=== PATIENT | female | born 1980 | race Caucasian/White ===

== ENCOUNTER 2017-02-02 20:06 | Emergency (ER) | payer OTHER ==
[2017-02-02 23:25] VITALS: BP 128/84
== END 2017-02-02 23:25 | disposition home or self-care (01) ==
LOC: ED 20:06
DX: J20.9 Acute bronchitis, unspecified (principal); J45.909 Unspecified asthma, uncomplicated

== ENCOUNTER 2017-12-11 22:13 | Inpatient (IN) | payer OTHER ==
[~2017-12-11] VITALS: Ht 162.6 cm; Wt 63.5 kg
[2017-12-11 22:59] LABS: BASOPHIL % 1.6 % (0-2); PLATELET COUNT 317 x10^3mcL (130-400); RED CELL DISTRIBUTION WIDTH 13.9 % (11.5-14.5)
[2017-12-11 23:09] LABS: CALCIUM 8.4 mg/dL (8.5-10.1); CARBON DIOXIDE 23.1 mmol/L (21-32); CHLORIDE SERUM 102 mmol/L (98-107); CREATININE SERUM 0.8 mg/dL (0.6-1.0); GFR1 > 60 mL/min; GLUCOSE SERUM 109 mg/dL (74-106); POTASSIUM SERUM 3.4 mmol/L (3.5-5.1); SODIUM SERUM 135 mmol/L (136-145)
[2017-12-11 23:14] LABS: ALBUMIN 3.7 g/dL (3.4-5.0); ALKALINE PHOSPHATASE 51 U/L (46-116); ALT/SGPT 17 U/L (14-59); AMYLASE 75 U/L (25-115); AST/SGOT 11 U/L (15-37); BILIRUBIN TOTAL 0.3 mg/dL (0.20-1.00); LIPASE 164 IU/L (73-393)
[2017-12-12 02:40] VITALS: BP 116/69
[2017-12-12 03:35] LABS: T3 TOTAL 1.06 ng/mL
[2017-12-12 04:01] LABS: MAGNESIUM 1.8 mg/dL (1.8-2.4); PHOSPHOROUS 2.6 mg/dL (2.5-4.9)
[2017-12-12 04:02] LABS: FREE T4 1.18 ng/dL (0.76-1.46); FREE THYROXINE INDEX 2.9 ug/dL (1.4-4.5); T4(THYROXINE) 8.4 ug/dL (4.7-13.3)
[2017-12-12 04:18] LABS: CHOLESTEROL/HDL RATIO 2.1
[2017-12-12 06:29] LABS: BASOPHIL % 1.6 % (0-2); PLATELET COUNT 289 x10^3mcL (130-400); RED CELL DISTRIBUTION WIDTH 13.6 % (11.5-14.5)
[2017-12-12 06:30] VITALS: BP 127/79
[2017-12-12 06:42] LABS: CALCIUM 8.2 mg/dL (8.5-10.1); CARBON DIOXIDE 23.1 mmol/L (21-32); CHLORIDE SERUM 106 mmol/L (98-107); CREATININE SERUM 0.7 mg/dL (0.6-1.0); GFR1 > 60 mL/min; GLUCOSE SERUM 92 mg/dL (74-106); POTASSIUM SERUM 3.8 mmol/L (3.5-5.1); SODIUM SERUM 138 mmol/L (136-145)
[2017-12-12 07:47] LABS: microscopic required? NO
[2017-12-12 08:19] LABS: urine erythrocyte NEGATIVE (NEGATIVE)
[2017-12-12 08:27] LABS: AMPHETAMINE QUAL UR NONE DETECTED (NEG <=1000)
[2017-12-12 11:22] VITALS: BP 123/57
[2017-12-12 13:46] VITALS: BP 136/78
[2017-12-12 18:14] VITALS: BP 154/88
[2017-12-12 20:47] VITALS: BP 147/81
[2017-12-13 05:54] VITALS: BP 119/79
[2017-12-13 06:21] LABS: BASOPHIL % 0.7 % (0-2); PLATELET COUNT 291 x10^3mcL (130-400); RED CELL DISTRIBUTION WIDTH 13.6 % (11.5-14.5)
[2017-12-13 06:37] LABS: CARBON DIOXIDE 25.7 mmol/L (21-32); CHLORIDE SERUM 106 mmol/L (98-107); CREATININE SERUM 0.7 mg/dL (0.6-1.0); GFR1 > 60 mL/min; GLUCOSE SERUM 82 mg/dL (74-106); MAGNESIUM 1.9 mg/dL (1.8-2.4); PHOSPHOROUS 3.4 mg/dL (2.5-4.9); POTASSIUM SERUM 3.5 mmol/L (3.5-5.1); SODIUM SERUM 138 mmol/L (136-145)
[2017-12-13 08:53] VITALS: BP 131/81
[2017-12-13 16:27] VITALS: BP 124/76
[2017-12-13 20:48] VITALS: BP 125/80
[2017-12-14 05:23] VITALS: BP 101/65
[2017-12-14 07:57] LABS: BASOPHIL % 1.8 % (0-2); PLATELET COUNT 297 x10^3mcL (130-400)
[2017-12-14 08:27] LABS: CALCIUM 8.3 mg/dL (8.5-10.1); CARBON DIOXIDE 26.2 mmol/L (21-32); CHLORIDE SERUM 105 mmol/L (98-107); CREATININE SERUM 0.8 mg/dL (0.6-1.0); GFR1 > 60 mL/min; GLUCOSE SERUM 88 mg/dL (74-106); MAGNESIUM 1.8 mg/dL (1.8-2.4); PHOSPHOROUS 3.7 mg/dL (2.5-4.9); POTASSIUM SERUM 3.5 mmol/L (3.5-5.1); SODIUM SERUM 141 mmol/L (136-145)
[2017-12-14 09:31] VITALS: BP 119/82
[2017-12-14 17:12] VITALS: BP 118/80
[2017-12-14 21:26] VITALS: BP 147/97
[2017-12-15 05:53] VITALS: BP 118/73
[2017-12-15 07:08] LABS: BASOPHIL % 1.1 % (0-2); PLATELET COUNT 266 x10^3mcL (130-400); RED CELL DISTRIBUTION WIDTH 13.6 % (11.5-14.5)
[2017-12-15 07:31] LABS: CALCIUM 8.2 mg/dL (8.5-10.1); CARBON DIOXIDE 28.7 mmol/L (21-32); CHLORIDE SERUM 106 mmol/L (98-107); CREATININE SERUM 0.9 mg/dL (0.6-1.0); GFR1 > 60 mL/min; GLUCOSE SERUM 83 mg/dL (74-106); POTASSIUM SERUM 3.4 mmol/L (3.5-5.1); SODIUM SERUM 140 mmol/L (136-145)
[2017-12-15 08:55] VITALS: BP 111/76
[2017-12-15] MEDS ORDERED: KEFLEX500 M1 PO (09:58)
[2017-12-15] MEDS ORDERED: BD LACTINEX1.4 MG PO (09:59)
[2017-12-15] MEDS ORDERED: MOT800 PO (09:59)
[2017-12-15] MEDS ORDERED: NORCO1 TA2 PO (10:00)
[2017-12-15] MEDS ORDERED: ZOF4 PO (10:21)
[2017-12-15 10:25] VITALS: BP 111/76
== END 2017-12-15 12:40 | disposition home or self-care (01) | DRG 263 ==
LOC: ED 22:13 → MU 12-12 00:20 → DU 12-12 00:20 → MU 12-12 02:57 → DU 12-12 07:39 → MU 12-12 17:36
PROVIDERS: Family Medicine; Specialist; Surgery
PROC: 0FT44ZZ Resection of Gallbladder, Percutaneous Endoscopic Approach (ICD-10-PCS; principal; 2017-12-12 08:00)
DX: K80.62 Calculus of gallbladder and bile duct with acute cholecystitis without obstruction (principal); E87.1 Hypo-osmolality and hyponatremia; E83.51 Hypocalcemia; E87.6 Hypokalemia; Z88.5 Allergy status to narcotic agent; Z88.6 Allergy status to analgesic agent; Z98.891 History of uterine scar from previous surgery
CPT/HCPCS: 83880; 84439; 94150; J0330; J1200; J1885; J2175; J2250; J2405; J2543; J2704; J2710; J3010; J3490; J7030; J7120; Q0092

== ENCOUNTER 2018-02-25 15:39 | Emergency (ER) | payer BC, OTHER ==
[~2018-02-25] VITALS: Ht 162.6 cm; Wt 67.6 kg
[~2018-02-25 15:39] MED LIST: BD LACTINEX1.4 MG PO; KEFLEX500 M1 PO; MOT800 PO; NORCO1 TA2 PO; ZOF4 PO
[2018-02-25 15:50] VITALS: Ht 162.6 cm; Wt 67.6 kg
[2018-02-25 17:34] LABS: BASOPHIL % 0.5 % (0-2); PLATELET COUNT 304 x10^3mcL (130-400); RED CELL DISTRIBUTION WIDTH 14.3 % (11.5-14.5)
[2018-02-25 17:39] LABS: CALCIUM 8.7 mg/dL (8.5-10.1); CARBON DIOXIDE 28.1 mmol/L (21-32); CHLORIDE SERUM 105 mmol/L (98-107); CREATININE SERUM 0.8 mg/dL (0.6-1.0); GFR1 > 60 mL/min; GLUCOSE SERUM 81 mg/dL (74-106); POTASSIUM SERUM 3.8 mmol/L (3.5-5.1); SODIUM SERUM 141 mmol/L (136-145)
[2018-02-25 17:44] LABS: ALBUMIN 3.8 g/dL (3.4-5.0); ALKALINE PHOSPHATASE 68 U/L (46-116); ALT/SGPT 18 U/L (14-59); AMYLASE 81 U/L (25-115); AST/SGOT 8 U/L (15-37); BILIRUBIN TOTAL 0.4 mg/dL (0.20-1.00); LIPASE 199 IU/L (73-393); TOTAL PROTEIN, SERUM 7.8 g/dL (6.4-8.2)
[2018-02-25 19:57] VITALS: BP 131/94
== END 2018-02-25 19:57 | disposition home or self-care (01) ==
LOC: ED 15:39
PROVIDERS: Emergency Medicine
DX: N83.201 Unspecified ovarian cyst, right side (principal)
CPT/HCPCS: 83880; J1885; Q0162

== ENCOUNTER 2018-08-22 13:02 | Emergency (ER) | payer OTHER ==
[~2018-08-22] VITALS: Ht 162.6 cm; Wt 68.9 kg
[2018-08-22 13:13] VITALS: Ht 162.6 cm; Wt 68.9 kg
[2018-08-22 16:43] VITALS: BP 142/94
== END 2018-08-22 16:43 | disposition home or self-care (01) ==
LOC: ED 13:02
DX: J45.901 Unspecified asthma with (acute) exacerbation (principal); B34.9 Viral infection, unspecified; Z98.890 Other specified postprocedural states; Z90.49 Acquired absence of other specified parts of digestive tract; Z88.6 Allergy status to analgesic agent; Z88.5 Allergy status to narcotic agent

== ENCOUNTER 2019-01-30 11:00 | Emergency (ER) | payer OTHER ==
[~2019-01-30] VITALS: Ht 162.6 cm; Wt 67.6 kg
[2019-01-30 11:05] VITALS: Ht 162.6 cm; Wt 67.6 kg
[2019-01-30 12:23] VITALS: BP 140/89
== END 2019-01-30 12:23 | disposition home or self-care (01) ==
LOC: ED 11:00
DX: N39.0 Urinary tract infection, site not specified (principal); J06.9 Acute upper respiratory infection, unspecified; J45.909 Unspecified asthma, uncomplicated; Z88.5 Allergy status to narcotic agent; Z88.1 Allergy status to other antibiotic agents; Z90.49 Acquired absence of other specified parts of digestive tract; Z98.890 Other specified postprocedural states
CPT/HCPCS: J1885

== ENCOUNTER 2019-03-18 12:07 | Emergency (ER) | payer OTHER ==
[~2019-03-18] VITALS: Ht 162.6 cm; Wt 68.0 kg
[2019-03-18 12:12] VITALS: Ht 162.6 cm; Wt 68.0 kg
[2019-03-18 15:56] VITALS: BP 110/71
== END 2019-03-18 15:56 | disposition home or self-care (01) ==
LOC: ED 12:07
DX: N39.0 Urinary tract infection, site not specified (principal); N83.202 Unspecified ovarian cyst, left side; Z98.890 Other specified postprocedural states; Z90.49 Acquired absence of other specified parts of digestive tract; Z88.5 Allergy status to narcotic agent; Z88.6 Allergy status to analgesic agent

== ENCOUNTER 2019-03-27 17:47 | Emergency (ER) | payer OTHER ==
[~2019-03-27] VITALS: Ht 162.6 cm; Wt 66.7 kg
[2019-03-27 18:00] VITALS: Ht 162.6 cm; Wt 66.7 kg
[2019-03-27 19:23] LABS: PLATELET COUNT 362 x10^3mcL (130-400); RED CELL DISTRIBUTION WIDTH 14.1 % (11.5-14.5)
[2019-03-27 19:31] LABS: CALCIUM 8.9 mg/dL (8.5-10.1); CARBON DIOXIDE 26.8 mmol/L (21-32); CHLORIDE SERUM 105 mmol/L (98-107); CREATININE SERUM 0.8 mg/dL (0.6-1.0); GFR1 > 60 mL/min; GLUCOSE SERUM 85 mg/dL (74-106); POTASSIUM SERUM 3.8 mmol/L (3.5-5.1); SODIUM SERUM 142 mmol/L (136-145)
[2019-03-27 19:37] LABS: ALBUMIN 4.2 g/dL (3.4-5.0); ALKALINE PHOSPHATASE 54 U/L (46-116); ALT/SGPT 27 U/L (14-59); AST/SGOT 17 U/L (15-37); BILIRUBIN TOTAL 0.4 mg/dL (0.20-1.00)
[2019-03-27 19:38] LABS: TOTAL PROTEIN, SERUM 8.3 g/dL (6.4-8.2)
[2019-03-27 22:48] VITALS: BP 132/86
[2019-03-27 22:59] LABS: T3 TOTAL 1.16 ng/mL
[2019-03-28 00:11] LABS: FREE T4 0.98 ng/dL (0.76-1.46); FREE THYROXINE INDEX 2.3 ug/dL (1.4-4.5); T4(THYROXINE) 7.8 ug/dL (4.7-13.3)
== END 2019-03-27 22:48 | disposition home or self-care (01) ==
LOC: ED 17:47
PROVIDERS: Emergency Medicine
DX: R51 Headache (principal); R42 Dizziness and giddiness; R07.89 Other chest pain; J45.909 Unspecified asthma, uncomplicated; Z88.5 Allergy status to narcotic agent; Z88.6 Allergy status to analgesic agent; Z98.890 Other specified postprocedural states; Z90.49 Acquired absence of other specified parts of digestive tract
CPT/HCPCS: 84439; J1885; J2405; J8597